=== PATIENT | female | born 1995 | race Caucasian/White ===

== ENCOUNTER → 2016-09-08 | Outpatient (CLI) | payer OTHER ==
[2016-09-08 14:22] LABS: Prolactin 9.9 ng/mL (3.0-18.6)
[2016-09-08 19:42] LABS: ACTH <5.00 pg/mL (0.00-45.99)
[2016-09-11 16:02] LABS: Mis test requested (Blood) 17-Hydroxypregnenolo
== END | disposition home or self-care (01) ==
LOC: LABWHC1 08:54
PROVIDERS: ATTEND Internal Medicine Endocrinology, Diabetes & Metabolism
DX: N92.6 Irregular menstruation, unspecified (principal); E04.9 Nontoxic goiter, unspecified
CPT/HCPCS: 36415; 82024; 82533; 83525; 84143; 84146; 84403; 84439; 84443

== ENCOUNTER → 2016-10-02 | Outpatient (CLI) | payer OTHER ==
--- NOTE | 2016-10-02 08:29 | US ---
EXAMINATION TYPE: US thyroid st tissue head/neck DATE OF EXAM: 10/02/2016 8:09 AM COMPARISON: NONE CLINICAL HISTORY: N92.6 Irregular menstruation. Palpable noted by patient's physician at left neck; patient c/o phlegm in throat this past week. GLAND SIZE: Right Lobe: 4.9 x 1.3 x 1.5 cm Overall Parenchyma: heterogenous Left Lobe: 4.5 x 1.7 x 1.4 cm Overall Parenchyma: heterogeneous Isthmus Thickness: 0.4 cm NODULES RIGHT: # of nodules measured on right: 1 1. 0.7 X 0.5 x 0.5 cm hypoechoic solid nodule at the mid lower pole with well-defined margins. Thi s nodule is wide as is tall and shows no intranodular vascularity. Prior size: no prior LEFT: # of nodules measured on left: 0 ISTHMUS: # of nodules measured in the isthmus: 0 Bilateral neck scanned: couple of hypoechoic nodules are noted inferior to right thyroid (Parathyroid vs. lymph nodes bilateral neck) with larger = 0.7 x 0.8 x 0.4cm; multiple hypoechoic nodules are not ed inferior to left thyroid with largest = 1.2 x 0.5 x 0.5cm. Another nodule is imaged superior to le ft thyroid isthmus = 1.1 x 0.7 x 0.5cm. IMPRESSION: 1. Hypoechoic subcentimeter nodule right thyroid lobe. 2. Glandular heterogeneity. 3. Scattered lymph nodes.
== END | disposition home or self-care (01) ==
LOC: RADUSWWP 07:28
PROVIDERS: ATTEND Internal Medicine Endocrinology, Diabetes & Metabolism
DX: E04.1 Nontoxic single thyroid nodule (principal)
CPT/HCPCS: 76536

== ENCOUNTER → 2016-10-03 | Outpatient (CLI) | payer OTHER ==
[2016-10-03 11:02] LABS: ALT 24 U/L (9-52); AST 25 U/L (14-36); Alkaline Phosphatase 71 U/L (38-126); Anion Gap 7 mmol/L; Blood Urea Nitrogen 14 mg/dL (7-17); Calcium 9.4 mg/dL (8.4-10.2); Carbon Dioxide 28 mmol/L (22-30); Chloride 104 mmol/L (98-107); Glucose 83 mg/dL (74-99); Non-African American GFR(MDRD) >60 (>60 ml/min/1.73 sqM); Potassium 4.7 mmol/L (3.5-5.1); Sodium 139 mmol/L (137-145); Total Bilirubin 0.5 mg/dL (0.2-1.3); Total Protein 6.8 g/dL (6.3-8.2)
== END | disposition home or self-care (01) ==
LOC: LABWHC1 10:14
PROVIDERS: ATTEND Internal Medicine Endocrinology, Diabetes & Metabolism
DX: N92.6 Irregular menstruation, unspecified (principal)
CPT/HCPCS: 36415; 80053

== ENCOUNTER → 2016-10-04 | Outpatient (CLI) | payer OTHER ==
[2016-10-06 08:54] LABS: Cortisol, Urine Free by LC-MS 10.5 ug/L
== END | disposition home or self-care (01) ==
LOC: LABWHC1 17:16
PROVIDERS: ATTEND Internal Medicine Endocrinology, Diabetes & Metabolism
DX: N92.6 Irregular menstruation, unspecified (principal)
CPT/HCPCS: 82530

== ENCOUNTER 2017-12-31 07:14 | Emergency (ER) | payer OTHER ==
[2017-12-31 07:27] VITALS: BP 121/70; PULSE 57; RESP 20; TEMP 98.3
--- NOTE | 2017-12-31 07:54 | ED ---
General Adult HPI - General Chief complaint: Skin/Abscess/Foreign Body Stated complaint: Allergic reaction Time Seen by Provider: 12/31/17 07:38 Source: patient, RN notes reviewed Mode of arrival: ambulatory Limitations: no limitations - History of Present Illness Initial comments: Patient 22-year-old female presenting to the emergency room today with chief complaint of some redness itching to the left side of the face patient mitts that 2 days ago she used a facial of retinol for the first time. She states that yesterday she noticed some itching to the left side of her chin cheek area. She states it started to spread to the top of the forehead. She states has been taking some Benadryl [id number] for this with little relief the symptoms. Patient denies any other complaints. Patient denies any recent fever , chills, shortness of breath, chest pain, back pain, abdominal pain, nausea or vomiting, headaches or visual changes, or any other complaints. - Related Data Allergies Allergy/AdvReac Type Severity Reaction Status Date / Time No Known Allergies Allergy Verified 12/31/17 07:27 Review of Systems ROS Statement: Those systems with pertinent positive or pertinent negative responses have been documented in the HPI. ROS Other: All systems not noted in ROS Statement are negative. Past Medical History Past Medical History: No Reported History History of Any Multi-Drug Resistant Organisms: None Reported Past Surgical History: No Surgical Hx Reported Past Psychological History: No Psychological Hx Reported Smoking Status: Never smoker Past Alcohol Use History: None Reported Past Drug Use History: None Reported General Exam - General Exam Comments Initial Comments: General: The patient is awake and alert, in no distress, and does not appear acutely ill. Eye: Pupils are equal, round and reactive to light, extra-ocular movements are intact. No nystagmus. There is normal conjunctiva bilaterally. No signs of icterus. Ears, nose, mouth and throat: There are moist mucous membranes and no oral lesions. Uvula midline. Patient's also difficulty. No angioedema. Neck: The neck is supple, there is no tenderness or JVD. Musculoskeletal: Normal ROM, no tenderness. Neurological: A&O x 3. CN II-XII intact, There are no obvious motor or sensory deficits. Coordination appears grossly intact. Speech is normal. Skin: Skin is warm and dry and intact. Mild redness to the left cheek. Area does jessica. Psychiatric: Cooperative, appropriate mood & affect, normal judgment. Limitations: no limitations Course Vital Signs 12/31/17 07:26 Temperature 98.3 F Pulse Rate 57 L Respiratory 20 Rate Blood Pressure 121/70 O2 Sat by Pulse 100 Oximetry Medical Decision Making - Medical Decision Making Advised patient to discontinue use of the facial wash and to discuss bowel trying a steroid for these symptoms but she has declined. Patient is advised continue Benadryl and Pepcid for her symptoms at this time. Disposition Clinical Impression: Allergic reaction Disposition: HOME SELF-CARE Condition: Good Instructions: General Allergic Reaction (ED) Additional Instructions: Please continue Benadryl one to 2 tabs every 6 hours as discussed. Please use Pepcid twice daily. Please return to emergency room symptoms increase or worsen or for any other concerns. Is patient prescribed a controlled substance at d/c from ED?: No Referrals: Amrik Carson MD [Primary Care Provider] - 1-2 days Time of Disposition: 07:53
== END 2017-12-31 08:08 | disposition home or self-care (01) ==
LOC: EC 07:14
DX: T78.40XA Allergy, unspecified, initial encounter (principal)
CPT/HCPCS: 99283